=== PATIENT | male | born 1990 | race Native Hawaiian/Other Pacific Islander ===

== ENCOUNTER 2017-08-06 14:38 | Inpatient (IN) | payer SELFPAY ==
[~2017-08-06] VITALS: Ht 182.9 cm; Wt 128.2 kg
[2017-08-06 14:41] VITALS: BP 130/71; PULSE 109; RESP 16; TEMP 99.7; O2SAT 98
[2017-08-06 15:10] VITALS: BP 128/72; PULSE 110; RESP 20; TEMP 99.1; O2SAT 98
--- NOTE | 2017-08-06 15:25 | PD ---
HPI Chief Complaint: Skin Problem Time Seen by Provider: 15:12 Travel History International Travel<30 days: No Contact w/Intl Traveler<30days: No Traveled to known affect area: No History of Present Illness HPI This patient complains of an infection in the right wrist. He injects IV Dilaudid frequently. He says he might of injected in the site but some phlegm but is not sure. No drainage from it. Symptoms severity is moderate. No alleviating factors. Duration 2 days. PFSH Social History Alcohol Use: No Tobacco Use: No Substance Use: No Allergies-Medications (Allergen,Severity, Reaction): Coded Allergies: No Known Allergies (Unverified , 08/06/17) Reported Meds & Prescriptions Reported Meds & Active Scripts Active No Active Prescriptions or Reported Medications Review of Systems General / Constitutional: Positive: Fever Eyes: No: Visual changes HENT: No: Headaches Cardiovascular: Positive: Tachycardia, No: Chest Pain or Discomfort Respiratory: No: Shortness of Breath Gastrointestinal: No: Abdominal Pain Genitourinary: No: Dysuria Musculoskeletal: Positive: Pain Skin: No Rash Neurologic: No: Weakness Psychiatric: Positive: Substance Abuse, No: Depression Endocrine: No: Polydipsia Hematologic/Lymphatic: No: Easy Bruising Physical Exam Narrative GENERAL: Well-nourished, well-developed patient in no apparent distress. SKIN: Focused skin assessment reveals no rash and nodules. Skin is Warm and dry. HEAD: Atraumatic. Normocephalic. EYES: Pupils equal and round. No scleral icterus. No injection or drainage. ENT: No nasal bleeding or discharge. Mucous membranes pink and moist. NECK: Trachea midline. No JVD. CARDIOVASCULAR: Regular rate and rhythm. No murmur appreciated. RESPIRATORY: No accessory muscle use. Clear to auscultation. Breath sounds equal bilaterally. GASTROINTESTINAL: Abdomen soft, non-tender, nondistended. Hepatic and splenic margins not palpable. MUSCULOSKELETAL: Has induration and erythema on the volar aspect of the right wrist. There is no fluctuance or active drainage. No clubbing. No cyanosis. No edema. NEUROLOGICAL: Awake and alert. No obvious cranial nerve deficits. Motor grossly within normal limits. Normal speech. PSYCHIATRIC: Appropriate mood and affect; insight and judgment poor . Data Data Last Documented VS Vital Signs Date Time Temp Pulse Resp B/P (MAP) Pulse Ox O2 Delivery O2 Flow Rate FiO2 08/06/17 15:10 99.1 110 20 128/72 (90) 98 Room Air Orders Orders Iv Access Insert/Monitor (08/06/17 15:17) Complete Blood Count With Diff (08/06/17 15:17) Comprehensive Metabolic Panel (08/06/17 15:17) Blood Culture (08/06/17 15:17) Vancomycin Inj (Vancomycin Inj) (08/06/17 15:30) Wrist, Limited (Ap&Lat) (08/06/17 ) Wound Culture And Gram Stain (08/06/17 16:05) Admit Order (Ed Use Only) (08/06/17 16:38) Labs Laboratory Tests Test 08/06/17 15:15 08/06/17 15:30 Blood Urea Nitrogen 7 MG/DL Creatinine 1.12 MG/DL Random Glucose 93 MG/DL Total Protein 8.4 GM/DL Albumin 3.6 GM/DL Calcium Level 9.1 MG/DL Alkaline Phosphatase 100 U/L Aspartate Amino Transf (AST/SGOT) 8 U/L Alanine Aminotransferase (ALT/SGPT) 20 U/L Total Bilirubin 0.7 MG/DL Sodium Level 135 MEQ/L Potassium Level 3.6 MEQ/L Chloride Level 101 MEQ/L Carbon Dioxide Level 23.6 MEQ/L Anion Gap 10 MEQ/L Estimat Glomerular Filtration Rate 79 ML/MIN White Blood Count 17.0 TH/MM3 Red Blood Count 4.89 MIL/MM3 Hemoglobin 14.2 GM/DL Hematocrit 41.5 % Mean Corpuscular Volume 84.8 FL Mean Corpuscular Hemoglobin 29.1 PG Mean Corpuscular Hemoglobin Concent 34.3 % Red Cell Distribution Width 13.5 % Platelet Count 214 TH/MM3 Mean Platelet Volume 9.4 FL Neutrophils (%) (Auto) 84.3 % Lymphocytes (%) (Auto) 8.6 % Monocytes (%) (Auto) 6.7 % Eosinophils (%) (Auto) 0.3 % Basophils (%) (Auto) 0.1 % Neutrophils # (Auto) 14.3 TH/MM3 Lymphocytes # (Auto) 1.5 TH/MM3 Monocytes # (Auto) 1.1 TH/MM3 Eosinophils # (Auto) 0.1 TH/MM3 Basophils # (Auto) 0.0 TH/MM3 CBC Comment DIFF FINAL Differential Comment MDM Medical Decision Making Medical Screen Exam Complete: Yes Emergency Medical Condition: Yes Medical Record Reviewed: Yes Differential Diagnosis Abscess, cellulitis, IV drug abuse Narrative Course I have reviewed the patient's electronic medical record. IV placed CBC shows leukocytosis of 17,000 Metabolic profile is normal LFTs are normal 2 blood culture sets obtained 1 g IV vancomycin given UMAIR Gordon performed ID on abcess and culture sent. Patient will require admission for IV antibiotics and evaluation for possible endocarditis given his fever and tachycardia and leukocytosis. Call placed to the medical residents for admission Sepsis Criteria SIRS Criteria (2 or more): Heart rate over 90, WBC > 59375, < 4000 or > 10% bands Sepsis Criteria (SIRS+source): Infect source susp/known Criteria Outcome: Meets sepsis criteria Diagnosis Primary Impression: Cellulitis of right arm Additional Impression: IV drug abuse Admitting Information Admitting Physician Requests: Admit Scripts No Active Prescriptions or Reported Alexey Larson MD Aug 06, 2017 15:25
[2017-08-06] MEDS ORDERED: VANCOMYCIN INJ 1,000 MG in SODIUM CHLOR 0.9% 250 ML INJ 250 ML IV ONE (15:30)
--- NOTE | 2017-08-06 15:47 | PD ---
Physical Exam Time Seen by Provider: 15:30 Data Data Last Documented VS Vital Signs Date Time Temp Pulse Resp B/P (MAP) Pulse Ox O2 Delivery O2 Flow Rate FiO2 08/06/17 14:41 99.7 109 16 130/71 (90) 98 Orders Orders Iv Access Insert/Monitor (08/06/17 15:17) Complete Blood Count With Diff (08/06/17 15:17) Comprehensive Metabolic Panel (08/06/17 15:17) Blood Culture (08/06/17 15:17) Vancomycin Inj (Vancomycin Inj) (08/06/17 15:30) Wrist, Limited (Ap&Lat) (08/06/17 ) MDM Medical Record Reviewed: Yes Supervised Visit with EDGARD: No Narrative Course This patient has a small abscess to the right wrist, he verbally consented to incision and drainage. Wound culture was performed. Procedures Procedure Narrative INCISION AND DRAINAGE OF ABSCESS: The area was prepped and was sterilely draped. A subcutaneous wheal of 1% Xylocaine with epinephrine with a total number 5 mL was used to anesthetize the area. The area was properly anesthetized. A [id number] was used to make a 1 -cm incision across the area of the abscess. Cultures were obtained. The abscess was drained an irrigated with normal saline. Scripts No Active Prescriptions or Reported Johnathans Evan Simpson Aug 06, 2017 15:47
[2017-08-06 16:11] LABS: AUTOMATED NEUTROPHIL # 14.3 TH/MM3 (1.8-7.7); BASOPHIL % 0.1 % (0.0-2.0); EOSINOPHIL # 0.1 TH/MM3 (0-0.4); EOSINOPHIL % 0.3 % (0.0-4.0); HEMATOCRIT 41.5 % (39.0-51.0); HEMO FLAGS DIFF FINAL; LYMPH % 8.6 % (9.0-44.0); LYMPHOCYTE # 1.5 TH/MM3 (1.0-4.8); MEAN CELL VOLUME 84.8 FL (80.0-100.0); MEAN CORPUSCULAR HEMOGLOBIN 29.1 PG (27.0-34.0); MEAN CORPUSCULAR HGB CONC 34.3 % (32.0-36.0); MONO % 6.7 % (0.0-8.0); NEUT % 84.3 % (16.0-70.0); PLATELET COUNT 214 TH/MM3 (150-450); RED BLOOD COUNT 4.89 MIL/MM3 (4.50-5.90); RED CELL DISTRIBUTION WIDTH 13.5 % (11.6-17.2)
--- NOTE | 2017-08-06 16:11 | RADRPT ---
EXAM DATE/TIME: 08/06/2017 16:01 [facility] COMPARISON: No previous studies available for comparison. INDICATIONS : Evaluate for foreign body. Possible needle fragment. MEDICAL HISTORY : None. SURGICAL HISTORY : None. ENCOUNTER: Initial ACUITY: 4 - 6 days PAIN SCORE: 7/10 LOCATION: Right upper extremity FINDINGS: There is swelling over the volar aspect of the wrist. There is no evidence of acute fracture. Bony mi neralization is normal. CONCLUSION: 1. There is no evidence of acute fracture. Mango Polanco MD on August 06, 2017 at 16:09 Board Certified Radiologist. This report was verified electronically.
[2017-08-06 16:35] LABS: ALT (GPT) 20 U/L (12-78); ANION GAP 10 MEQ/L (5-15); AST (GOT) 8 U/L (15-37); BICARBONATE 23.6 MEQ/L (21.0-32.0); BLOOD UREA NITROGEN 7 MG/DL (7-18); CHLORIDE 101 MEQ/L (98-107); GLOMERULAR FILTRATION RATE 79 ML/MIN (>89); POTASSIUM 3.6 MEQ/L (3.5-5.1); SODIUM (NA) 135 MEQ/L (136-145)
[2017-08-06 16:37] LABS: ALKALINE PHOSPHATASE 100 U/L (45-117); TOTAL BILIRUBIN ADULT 0.7 MG/DL (0.2-1.0)
--- NOTE | 2017-08-06 16:59 | HHI.HP ---
[facility] Service Family Medicine Primary Care Physician No Primary Care Physician Admission Diagnosis R arm cellulitis/abscess, IVDA Diagnoses: International Travel<30 Days: No Contact w/Intl Traveler<30days: No Known Affected Area: No History of Present Illness Patient is a 26-year-old IVDU who presents with right wrist abscess and cellulitis status post incision and drainage in emergency department. Patient reports that the pain and swelling started on Saturday. He can't remember if he missed when injecting or had an insect bite. For the last two days, he has been in unbearable pain. When he started getting a fever, he decided to come in. He reports decreased range of motion of his fingers secondary to pain. He also reports pain to palpation and movement of his wrist. He also reports some paresthesias in all of his fingers of his right hand. (Jason Hays MD R2) Review of Systems Constitutional: COMPLAINS OF: Fever, Chills, DENIES: Change in appetite, Night Sweats Endocrine: DENIES: Polydipsia, Polyuria Eyes: DENIES: Blurred vision, Diplopia, Eye pain, Vision loss, Double Vision Ears, nose, mouth, throat: DENIES: Throat pain, Ear Pain, Running Nose, Sinus Pain, Toothache Respiratory: DENIES: Cough, Sputum production, Shortness of breath Cardiovascular: DENIES: Chest pain, Syncope, Dyspnea on Exertion, Lower Extremity Edema Gastrointestinal: DENIES: Abdominal pain, Black stools, Bloody stools, Diarrhea , Nausea, Vomiting Genitourinary: DENIES: Dysuria, Penile Discharge Musculoskeletal: COMPLAINS OF: Joint pain, Muscle aches, Joint Swelling Integumentary: COMPLAINS OF: Abnormal pigmentation (red since ), DENIES: Rash Neurologic: COMPLAINS OF: Headache (for last two days), Paresthesias (fingers of right hand) (Jason Hays MD R2) Past Family Social History Past Medical History Patient reports that he has been in rehab for IVDU multiple times. He reports that he takes Dilaudid 8mg 3-4 times per day for a total of 32 mg per day. Has been taking this much for the last 6 years. Prior to that, he used to do 10-15 pills per day. Past Surgical History denies Reported Medications He reports that he takes Dilaudid 8mg 3-4 times per day for a total of 32 mg per day. Has been taking this much for the last 6 years. Prior to that, he used to do 10-15 pills per day. It has been a few months since taking Xanax 1 mg bid. Reported Meds & Active Scripts Active No Active Prescriptions or Reported Medications (Jason Hays MD R2) Allergies: Coded Allergies: No Known Allergies (Unverified , 08/06/17) Active Ordered Medications Current Medications Medications (Trade) Dose Ordered Sig/Jeni Route Start Time Stop Time Status Last Admin (NS Flush) 2 ml BID IV FLUSH 08/06/17 21:00 (NS Flush) 2 ml UNSCH PRN IV FLUSH 08/06/17 17:00 Sodium Chloride 1,000 ml @ 160 mls/hr Q6H15M IV 08/06/17 16:50 08/06/17 18:23 Pharmacy Profile Note 0 ml @ 0 mls/hr UNSCH OTHER 08/06/17 17:00 (Lovenox Inj) 40 mg Q24H SQ 08/06/17 20:00 (Ofirmev 1000 Mg/ 100 ml Inj) 1,000 mg Q6H IV 08/06/17 18:00 (Motrin) 400 mg Q6H PRN PO 08/06/17 17:30 (Toradol Inj) 15 mg Q6H PRN IVP 08/06/17 17:30 08/11/17 17:29 (Toradol Inj) 30 mg Q6H PRN IVP 08/06/17 17:30 08/11/17 17:29 (Dilaudid Pf Inj) 2 mg Q3H PRN IV 08/06/17 17:30 (Narcan Inj) 0.4 mg UNSCH PRN IV 08/06/17 17:30 Vancomycin HCl 2000 mg/Sodium Chloride 520 ml @ 250 mls/hr Q12H IV 08/06/17 22:00 Miscellaneous Information SPECIFIC LAB TO BE ... ONCE ONCE .XX 08/08/17 21:45 08/08/17 21:46 Family History His grandfather had multiple bypass surgeries. His dad recently had a heart attack. Social History He is not working anymore. He has been staying with a friend. Tobacco: 1ppd for 15 years. Alcohol : denies He reports that he takes Dilaudid 8mg 3-4 times per day for a total of 32 mg per day. Has been taking this much for the last 6 years. Prior to that, he used to do 10-15 pills per day. He reports smoking marijuana for glaucoma in both eyes, which helps with headaches. (Jason Hays MD R2) Physical Exam Vital Signs Vital Signs Date Time Temp Pulse Resp B/P (MAP) Pulse Ox O2 Delivery O2 Flow Rate FiO2 08/06/17 15:10 99.1 110 20 128/72 (90) 98 Room Air 08/06/17 14:41 99.7 109 16 130/71 (90) 98 Physical Exam GENERAL: This is a well-nourished, well-developed patient, in no apparent distress. SKIN: See musculoskeletal exam for description of right arm abscess and cellulitis. No rashes or ecchymoses. Otherwise, warm and dry. HEAD: Atraumatic. Normocephalic. EYES: Pupils equal round and reactive. Extraocular motions intact. No scleral icterus. No injection or drainage. ENT: Nose without bleeding, purulent drainage or septal hematoma. Throat without erythema, tonsillar hypertrophy or exudate. Uvula midline. Airway patent. NECK: Trachea midline. No JVD or lymphadenopathy. Supple, nontender, no meningeal signs. CARDIOVASCULAR: Regular rate and rhythm without murmurs, gallops, or rubs. RESPIRATORY: Clear to auscultation. Breath sounds equal bilaterally. No wheezes , rales, or rhonchi. GASTROINTESTINAL: Abdomen soft, non-tender, nondistended. No hepato-splenomegaly , or palpable masses. No guarding. MUSCULOSKELETAL: Extremities without clubbing, cyanosis, or edema. No calf tenderness. He has the beginnings of a pilonidal cyst with erythema and fluctuance over coccyx. Right forearm and wrist: Patient with a 3 cm x 4 cm abscess status post incision and drainage on the volar aspect of his right wrist, a few centimeters from the palm of the hand. There is a surrounding area of erythema about 7 cm x 16 cm extending proximally up the volar aspect of the right forearm. Erythematous area is extremely tender to palpation. Patient reports tenderness to palpation of right wrist. Wrist and finger range of motion limited by pain. He can however move his fingers and feel me touching his fingers. 2 second cap refill present in all fingers. NEUROLOGICAL: Awake and alert. Cranial nerves II through XII grossly intact. Motor and sensory grossly within normal limits. Five out of 5 muscle strength in all muscle groups. Normal speech. Laboratory Laboratory Tests Test 08/06/17 15:15 08/06/17 15:30 Blood Urea Nitrogen 7 Creatinine 1.12 Random Glucose 93 Total Protein 8.4 Albumin 3.6 Calcium Level 9.1 Alkaline Phosphatase 100 Aspartate Amino Transf (AST/SGOT) 8 Alanine Aminotransferase (ALT/SGPT) 20 Total Bilirubin 0.7 Sodium Level 135 Potassium Level 3.6 Chloride Level 101 Carbon Dioxide Level 23.6 Anion Gap 10 Estimat Glomerular Filtration Rate 79 White Blood Count 17.0 Red Blood Count 4.89 Hemoglobin 14.2 Hematocrit 41.5 Mean Corpuscular Volume 84.8 Mean Corpuscular Hemoglobin 29.1 Mean Corpuscular Hemoglobin Concent 34.3 Red Cell Distribution Width 13.5 Platelet Count 214 Mean Platelet Volume 9.4 Neutrophils (%) (Auto) 84.3 Lymphocytes (%) (Auto) 8.6 Monocytes (%) (Auto) 6.7 Eosinophils (%) (Auto) 0.3 Basophils (%) (Auto) 0.1 Neutrophils # (Auto) 14.3 Lymphocytes # (Auto) 1.5 Monocytes # (Auto) 1.1 Eosinophils # (Auto) 0.1 Basophils # (Auto) 0.0 CBC Comment DIFF FINAL Differential Comment Date/Time Source Procedure Growth Status 08/06/17 15:15 Blood Peripheral Aerobic Blood Culture Pending Received 08/06/17 15:15 Blood Peripheral Anaerobic Blood Culture Pending Received 08/06/17 16:00 Wound Wrist Gram Stain Pending Received 08/06/17 16:00 Wound Wrist Wound Culture Pending Received (Jason Hays MD R2) Result Diagram: 08/06/17 1530 08/06/17 1515 Imaging Last Impressions Wrist X-Ray 08/06/17 0000 Signed Impressions: Service Date/Time: Sunday, August 06, 2017 16:01 - CONCLUSION: 1. There is no evidence of acute fracture. Mango Polanco MD Course In the emergency department, patient had vancomycin IV, blood culture, CMP, CBC , wrist x-ray, wound culture and Gram stain, admission order. (Jason Hays MD R2) Septic Shock Reassessment Heart: Regular rate and rhythm Lungs: Clear Skin: Warm, Dry, [place] Capillary Refill: Brisk, <2 seconds (Jason Hays MD R2) Caprini VTE Risk Assessment Caprini VTE Risk Assessment: No/Low Risk (score <= 1) Caprini Risk Assessment Model Point Value = 1 Point Value = 2 Point Value = 3 Point Value = 5 Age 41-60 Minor surgery BMI > 25 kg/m2 Swollen legs Varicose veins or History of unexplained or recurrent spontaneous Oral contraceptives or hormone replacement Sepsis (< 1 month) Serious lung disease, including pneumonia (< 1 month) Abnormal pulmonary function Acute myocardial infarction Congestive heart failure (< 1 month) History of inflammatory bowel disease Medical patient at bed rest Age 61-74 Arthroscopic surgery Major open surgery (> 45 min) Laparoscopic surgery (> 45 min) Malignancy Confined to bed (> 72 hours) Immobilizing plaster cast Central venous access Age >= 75 History of VTE Family history of VTE Factor V Leiden Prothrombin [id number] Lupus anticoagulant Anticardiolipin antibodies Elevated serum homocysteine Heparin-induced thrombocytopenia Other congenital or acquired thrombophilia Stroke (< 1 month) Elective arthroplasty Hip, pelvis, or leg fracture Acute spinal cord injury (< 1 month) Prophylaxis Regimen Total Risk Factor Score Risk Level Prophylaxis Regimen 0-1 Low Early ambulation 2 Moderate Order ONE of the following: *Sequential Compression Device (SCD) *Heparin 5000 units SQ BID 3-4 Higher Order ONE of the following medications: *Heparin 5000 units SQ TID *Enoxaparin/Lovenox 40 mg SQ daily (WT < 150 kg, CrCl > 30 mL/min) *Enoxaparin/Lovenox 30 mg SQ daily (WT < 150 kg, CrCl > 10-29 mL/min) *Enoxaparin/Lovenox 30 mg SQ BID (WT < 150 kg, CrCl > 30 mL/min) AND/OR *Sequential Compression Device (SCD) 5 or more Highest Order ONE of the following medications: *Heparin 5000 units SQ TID (Preferred with Epidurals) *Enoxaparin/Lovenox 40 mg SQ daily (WT < 150 kg, CrCl > 30 mL/min) *Enoxaparin/Lovenox 30 mg SQ daily (WT < 150 kg, CrCl > 10-29 mL/min) *Enoxaparin/Lovenox 30 mg SQ BID (WT < 150 kg, CrCl > 30 mL/min) AND *Sequential Compression Device (SCD) (Jason Hays MD R2) Assessment and Plan Assessment and Plan Patient is a 26-year-old IVDU who presents with right wrist abscess and cellulitis status post incision and drainage in emergency department. Plan to admit for IV antibiotics and echocardiogram. Given that the patient reports tenderness to palpation of right wrist, Wrist and finger range of motion limited by pain, consulted hand surgery, who requested MRI of right wrist. Code Status Full code Discussed Condition With d/w Dr. Duff (Jason Hays MD R2) Attending Attestation The patient has been seen and examined. The chart and all resident notes have been reviewed. I agree that inpatient care is appropriate and that a two midnight stay is expected for the reasons documented in the resident history and physical. I have discussed this with the resident and certify the resident s order for inpatient admission. (Yuliet Duff MD) Problem List: (1) Sepsis ICD Codes: A41.9 - Sepsis, unspecified organism Plan: Patient meets SIRS with leukocytosis and tachycardia with identifiable source with abscess and cellulitis. -See A/P below -IVF bolus (2) Abscess ICD Codes: L02.91 - Cutaneous abscess, unspecified Plan: Patient presents with abscess in the context of IVDU s/p I&D in ED. abscess is located over the tendons of the hand. Patient reports tenderness to palpation of wrist, decreased range of motion of wrist, decreased range of motion of fingers secondary to pain. -Consult hand surgery -MRI of right wrist -Wound culture and Gram stain (3) Cellulitis of right arm ICD Codes: L03.113 - Cellulitis of right upper limb Status: Acute Plan: Patient with area of cellulitis surrounding abscess. -Vancomycin IV every 12 hours -Maintenance IV fluids with normal saline -Blood culture -Monitor vital signs -Acetaminophen 1 g IV every 6 hours -Motrin when necessary for pain 1-2 -Toradol 15 mg IV when necessary for pain 3-5, 30 mg IV for pain 6-10 -Dilaudid when necessary for breakthrough pain - (4) IV drug abuse ICD Codes: F19.10 - Other psychoactive substance abuse, uncomplicated Status: Acute Plan: Patient with history of IV drug use. -Echocardiogram -HIV, hepatitis panel (5) Anxiety ICD Codes: F41.9 - Anxiety disorder, unspecified Plan: -Xanax 0.5 mg by mouth every 4 hours when necessary for anxiety (6) No contraindication to deep vein thrombosis (DVT) prophylaxis ICD Codes: Z78.9 - Other specified health status Plan: -Lovenox for DVT prophylaxis (7) Nutrition, metabolism, and development symptoms ICD Codes: R63.8 - Other symptoms and signs concerning food and fluid intake Plan: Fluids: Maintenance IV fluids with normal saline Electrolytes: Monitor and replete as necessary Nutrition: Regular basic diet (Jason Hays MD R2) Physician Certification 2 Midnight Certification Type: Admission for Inpatient Services Order for Inpatient Services The services are ordered in accordance with Medicare regulations or non- Medicare payer requirements, as applicable. In the case of services not specified as inpatient-only, they are appropriately provided as inpatient services in accordance with the 2-midnight benchmark. Estimated LOS (days): 2 2 days is the estimated time the patient will need to remain in the hospital, assuming treatment plan goals are met and no additional complications. Post-Hospital Plan: Not yet determined (Jason Hays MD R2) Jason Hays MD R2 Aug 06, 2017 16:59 Yuliet Duff MD Aug 07, 2017 21:55
[2017-08-06] MEDS ORDERED: Vancomycin Consult Pharmacy 1 EA OTHER SCH ×3 (17:00→21:15)
[2017-08-06] MEDS ORDERED: ACETAMINOPHEN 500 MG CPLT PO PRN (17:00)
[2017-08-06] MEDS ORDERED: SODIUM CHLORIDE 0.9% FLUSH 10 ML FLUSH IV FLUSH PRN (17:00)
[2017-08-06] MEDS ORDERED: VANCOMYCIN INJ 1,000 MG in SODIUM CHLOR 0.9% 250 ML INJ 250 ML IV SCH (17:00)
[2017-08-06] MEDS ORDERED: ACETAMINOPHEN/HYDROcodone 325 MG/7.5 MG TAB PO PRN (17:00)
[2017-08-06] MEDS ORDERED: KETOROLAC TROMETHAMINE 30 MG/ML (IVP) VIAL IVP PRN ×2 (17:00→17:30)
[2017-08-06] MEDS ORDERED: ACETAMINOPHEN/HYDROcodone 325 MG/5 MG TAB PO PRN (17:00)
[2017-08-06] MEDS ORDERED: HYDROmorphone HCL PF 2 MG/ML VIAL IV PUSH ONE (17:15)
[2017-08-06] MEDS ORDERED: KETOROLAC TROMETHAMINE 30 MG/ML (IVP) VIAL IVP ONE (17:15)
[2017-08-06] MEDS ORDERED: NALOXONE HCL 0.4 MG/ML AMP IV PRN (17:30)
[2017-08-06] MEDS ORDERED: IBUPROFEN 400 MG TAB PO PRN (17:30)
[2017-08-06] MEDS: ACETAMINOPHEN 1000 MG/100 ML VIAL IV SCH (18:00)
[2017-08-06] MEDS: SODIUM CHLOR 0.9% 1000 ML INJ 1,000 ML IV SCH ×2 (18:23→23:57)
--- NOTE | 2017-08-06 19:09 | RADRPT ---
EXAM DATE/TIME: 08/06/2017 18:44 [facility] COMPARISON: No previous studies available for comparison. INDICATIONS : Evaluate for foreign body, needle broke off in patient's arm, MRI clearance. MEDICAL HISTORY : Smoker. SURGICAL HISTORY : None. ENCOUNTER: Initial ACUITY: 1 month PAIN SCORE: 0/10 LOCATION: Right elbow. FINDINGS: Two view examination of the right elbow demonstrates no soft tissue swelling, joint effusion, fractur e or dislocation. Bony mineralization is normal. Small needle fragment in soft tissues in the latera l antecubital region. CONCLUSION: 1. Tiny needle fragment in soft tissues. Patient is cleared for MRI Dylan Tong MD on August 06, 2017 at 19:05 Board Certified Radiologist. This report was verified electronically.
--- NOTE | 2017-08-06 19:10 | RADRPT ---
EXAM DATE/TIME: 08/06/2017 18:46 [facility] COMPARISON: No previous studies available for comparison. INDICATIONS : Evaluate for foreign body, needle broke off in patient's arm, MRI clearence. MEDICAL HISTORY : Smoker. SURGICAL HISTORY : None. ENCOUNTER: Initial ACUITY: >1 year PAIN SCORE: 0/10 LOCATION: Left elbow. FINDINGS: Two view examination of the left elbow demonstrates 2 tiny needle fragments in the soft tissues of th e medial antecubital region. No acute bony abnormalities. CONCLUSION: 1. 2 tiny needle fragments in the antecubital soft tissues. Patient cleared for MRI. Dylan Tong MD on August 06, 2017 at 19:07 Board Certified Radiologist. This report was verified electronically.
[2017-08-06] MEDS: ENOXAPARIN SODIUM 40 MG/0.4 ML SYRINGE SQ SCH (20:00)
[2017-08-06 20:18] VITALS: BP 117/60; PULSE 92; RESP 18
[2017-08-06 20:44] VITALS: BP 117/58; PULSE 61; RESP 16; TEMP 98.6; O2SAT 97
[2017-08-06] MEDS: SODIUM CHLORIDE 0.9% FLUSH 10 ML FLUSH IV FLUSH SCH (21:00)
--- NOTE | 2017-08-06 21:53 | MB ---
cc: SUZAN CRAIG III, M.D. DATE OF CONSULTATION 08/06/17 HISTORY OF PRESENT ILLNESS The patient is a 26-year-old [id number] male who injects IV drugs by mixing crushed up Dilaudid with bottled water. He injected into his right volar wrist and developed an abscess. Incision and drainage was performed by the physician's assistant professor of communication this afternoon. I was consulted to rule out a septic wrist. The patient states he has had significant relief since the incision and drainage. PAST MEDICAL HISTORY He denies. PAST SURGICAL HISTORY Denies. MEDICATIONS Denied. ALLERGIES NO KNOWN DRUG ALLERGIES. REVIEW OF SYSTEMS Patient not complaining of any headaches, blurry or double vision. He is not complaining of any coughing, wheeze or shortness breath. He is not complaining of any chest pain or palpitations. He is not complaining of any nausea, vomiting or abdominal pain. He is not complaining of any burning, frequency or urgency with urination. He is not complaining of any night sweats, fevers or chills. He is not complaining of any lesions, rashes or eruptions on his skin other than the right wrist. He is not complaining of any anxiety, depression or suicidal ideations. LABORATORY DATA Laboratory studies were done and reveal white blood cell count 17,000, platelet count 214,000, BUN, creatinine 7 and 1.12. IMAGING STUDIES X-rays were performed and reviewed of his right elbow reveal a tiny needle fragment in soft tissue. A left elbow revealed two tiny needle fragments in the soft tissues. X-ray of the right wrist revealed swelling over the volar aspect of the wrist. No evidence of acute fracture. Bony mineralization is normal. PHYSICAL EXAMINATION GENERAL: Well-developed, well-nourished, no apparent distress, sitting comfortably in his bed. He is awake, alert, oriented x3. He is very pleasant. DIRECTED EXAMINATION: Examination of the right hand and upper extremity reveals an IV in the right antecubital fossa which will be promptly removed. There is a 1 cm longitudinal incision on the volar aspect of the wrist, right in the center, 3 cm proximal to the wrist flexion crease. I am able to express a small amount of pus from. There is no induration. There is edema and mild erythema, it is tender to touch. Examination of the wrist reveals he has full active range of motion of the wrist and all of his fingers. There is no erythema or fullness of the wrist. Manipulation of the wrist passively does not cause him any discomfort. Scaphoid shift test does not cause him any discomfort at all. Capillary refill is less than 2 seconds in all fingertips. There is no evidence of any subcutaneous emphysema anywhere in the right upper extremity. IMPRESSION Right distal forearm/wrist abscess status post incision and drainage. Gram stain revealed that it was not performed. He is on vancomycin and I am going to order Cipro as well. I have ordered dressing packing changes and we also ordered elevation of the limb full-time. I discussed this with the patient's nurse as well as the patient and with Dr. Hays and have everyone's agreement, the patient is very easy to work with. MD DANIEL Irizarry III/KADEN /9:09 PM /9:29 PM
[2017-08-06] MEDS: HYDROmorphone HCL PF 1 MG/ML VIAL IV PRN (22:10)
[2017-08-06] MEDS: VANCOMYCIN INJ 2,000 MG in SODIUM CHLORID 0.9% 500 ML INJ 500 ML IV SCH (23:57)
[2017-08-06] MEDS: ALPRAZolam 0.5 MG TAB PO PRN (23:57)
[2017-08-07 00:17] VITALS: BP 120/60; PULSE 64; RESP 16; TEMP 98.6; O2SAT 98
[2017-08-07] MEDS: KETOROLAC TROMETHAMINE 30 MG/ML (IVP) VIAL IVP PRN ×3 (01:43→17:50)
[2017-08-07] MEDS: CIPROFLOXACIN 400 MG PREMIX 200 ML IV SCH ×2 (04:03→13:25)
[2017-08-07 04:05] VITALS: BP 125/65; PULSE 65; RESP 18; TEMP 98.5; O2SAT 98
[2017-08-07] MEDS: HYDROmorphone HCL PF 1 MG/ML VIAL IV PRN ×4 (04:29→20:02)
[2017-08-07] MEDS: SODIUM CHLOR 0.9% 1000 ML INJ 1,000 ML IV SCH ×3 (04:47→17:48)
[2017-08-07] MEDS: ACETAMINOPHEN 1000 MG/100 ML VIAL IV SCH ×4 (05:57→20:00)
[2017-08-07 08:51] VITALS: BP 123/80; PULSE 57; RESP 16; TEMP 98; O2SAT 97
[2017-08-07] MEDS ORDERED: SODIUM CHLOR 0.9% 1000 ML INJ 1,000 ML IV ONE (09:00)
[2017-08-07] MEDS: SODIUM CHLORIDE 0.9% FLUSH 10 ML FLUSH IV FLUSH SCH ×2 (09:00→20:01)
[2017-08-07] MEDS: ALPRAZolam 0.5 MG TAB PO PRN ×2 (09:29→20:02)
[2017-08-07] MEDS: VANCOMYCIN INJ 2,000 MG in SODIUM CHLORID 0.9% 500 ML INJ 500 ML IV SCH ×2 (11:20→22:08)
[2017-08-07 11:24] VITALS: BP 119/77; PULSE 52; RESP 16; TEMP 98; O2SAT 99
[2017-08-07] MEDS: oxyCODONE HCL 10 MG CONTROLLED RELEASE TAB PO SCH ×2 (13:38→22:10)
[2017-08-07 16:33] VITALS: BP 121/68; PULSE 54; RESP 16; TEMP 97.7; O2SAT 98
[2017-08-07 17:25] LABS: BASOPHIL % 0.3 % (0.0-2.0); EOSINOPHIL # 0.2 TH/MM3 (0-0.4); EOSINOPHIL % 2.4 % (0.0-4.0); HEMO FLAGS DIFF FINAL; LYMPH % 20.2 % (9.0-44.0); LYMPHOCYTE # 1.8 TH/MM3 (1.0-4.8); MEAN CELL VOLUME 85.6 FL (80.0-100.0); MEAN CORPUSCULAR HEMOGLOBIN 28.7 PG (27.0-34.0); MEAN CORPUSCULAR HGB CONC 33.5 % (32.0-36.0); NEUT % 67.1 % (16.0-70.0); PLATELET COUNT 187 TH/MM3 (150-450); RED BLOOD COUNT 4.21 MIL/MM3 (4.50-5.90); RED CELL DISTRIBUTION WIDTH 13.6 % (11.6-17.2); WHITE BLOOD COUNT 8.9 TH/MM3 (4.0-11.0)
[2017-08-07 18:10] LABS: BICARBONATE 27.2 MEQ/L (21.0-32.0); POTASSIUM 3.9 MEQ/L (3.5-5.1)
--- NOTE | 2017-08-07 18:48 | HHI.FPPN ---
Subjective Subjective patient seen and examined with the resident team. case reviewed and discussed please refer to resident h&p for further details regarding hpi, ros, pmh, psh, fh and sochx in summary, patient is a 26yoM with a hx of ivdu presenting with swelling and pain in his R wrist upon arrival to the ED, patient met sepsis criteria [facility] Objective Objective Last Impressions Wrist X-Ray 08/06/17 0000 Signed Impressions: Service Date/Time: Sunday, August 06, 2017 16:01 - CONCLUSION: 1. There is no evidence of acute fracture. Mango Polanco MD Elbow X-Ray 08/06/17 0000 Signed Impressions: Service Date/Time: Sunday, August 06, 2017 18:46 - CONCLUSION: 1. 2 tiny needle fragments in the antecubital soft tissues. Patient cleared for MRI. Dylan Tong MD Laboratory Tests - Abnormals Test 08/07/17 04:38 08/07/17 16:21 Urine Cannabinoids Screen POS Red Blood Count 4.21 MIL/MM3 Hemoglobin 12.1 GM/DL Hematocrit 36.0 % Monocytes (%) (Auto) 10.0 % Erythrocyte Sedimentation Rate 48 mm/hr Calcium Level 8.0 MG/DL Chloride Level 109 MEQ/L C-Reactive Protein 7.90 MG/DL Vital Signs 08/06/17 08/06/17 08/07/17 08/07/17 20:18 20:44 00:17 02:45 Temp 98.6 98.6 Pulse 92 61 64 Resp 18 16 16 18 B/P (MAP) 117/60 (79) 117/58 (77) 120/60 (80) Pulse Ox 97 98 08/07/17 08/07/17 08/07/17 08/07/17 04:05 05:00 06:46 08:51 Temp 98.5 98.0 Pulse 65 57 Resp 18 16 18 16 B/P (MAP) 125/65 (85) 123/80 (94) Pulse Ox 98 97 08/07/17 08/07/17 11:24 16:33 Temp 98.0 97.7 Pulse 52 54 Resp 16 16 B/P (MAP) 119/77 (91) 121/68 (85) Pulse Ox 99 98 INTAKE & OUTPUT 08/08/17 07:00 Intake Total 3800 ml Balance 3800 ml Physical exam GENERAL: wdwn male, nad SKIN: Warm and dry. R wrist with edema and drainage expressible, pain with movement of fingers and wrist HEAD: Normocephalic. EYES: No scleral icterus. No injection or drainage. NECK: Supple, trachea midline. No JVD or lymphadenopathy. CARDIOVASCULAR: Regular rate and rhythm without murmurs, gallops, or rubs. RESPIRATORY: Breath sounds equal bilaterally. No accessory muscle use. GASTROINTESTINAL: Abdomen soft, non-tender, nondistended. MUSCULOSKELETAL: No cyanosis, or edema. BACK: Nontender without obvious deformity. No CVA tenderness. Assessment Assessment 26yoM admitted with: Sepsis secondary to wrist abscess IVDU Leukocytosis PSA PLAN PLAN Wound culture Blood culture IVF Empiric antibiotic therapy Hand surgery consult Pain control Patient seen and examined. Case reviewed and discussed Agree with plan of care as discussed with me and documented in the resident note. Yuliet Duff MD Aug 07, 2017 18:48
[2017-08-07 19:49] VITALS: BP 134/75; PULSE 48; RESP 19; TEMP 98.2; O2SAT 100
[2017-08-07] MEDS: ENOXAPARIN SODIUM 40 MG/0.4 ML SYRINGE SQ SCH (20:01)
[2017-08-08] MEDS: CIPROFLOXACIN 400 MG PREMIX 200 ML IV SCH (00:24)
[2017-08-08] MEDS: HYDROmorphone HCL PF 1 MG/ML VIAL IV PRN ×6 (00:25→19:59)
[2017-08-08] MEDS: SODIUM CHLOR 0.9% 1000 ML INJ 1,000 ML IV SCH ×3 (00:29→12:35)
[2017-08-08 01:16] VITALS: BP 126/78; PULSE 52; RESP 18; TEMP 98.6; O2SAT 100
[2017-08-08] MEDS: ACETAMINOPHEN 1000 MG/100 ML VIAL IV SCH ×4 (02:49→20:00)
[2017-08-08 03:49] VITALS: BP 116/69; PULSE 58; RESP 18; TEMP 97.8; O2SAT 99
[2017-08-08 04:50] VITALS: BP 114/69; PULSE 60; RESP 16; TEMP 97.5; O2SAT 100
[2017-08-08] MEDS: ALPRAZolam 0.5 MG TAB PO PRN ×3 (05:30→21:08)
[2017-08-08] MEDS: oxyCODONE HCL 10 MG CONTROLLED RELEASE TAB PO SCH ×3 (05:39→21:41)
[2017-08-08 08:03] VITALS: BP 125/75; PULSE 50; RESP 18; TEMP 97.7; O2SAT 98
[2017-08-08] MEDS: SODIUM CHLORIDE 0.9% FLUSH 10 ML FLUSH IV FLUSH SCH ×2 (08:18→20:00)
--- NOTE | 2017-08-08 09:02 | HHI.FPPN ---
Subjective Remarks Mr Martinez had no acute events overnight. His pain is controlled, is ambulating, taking PO, voiding and w/BMs. Still with pain in his right wrist. AFVSS. Hand surgeon told him to change dressings q8h. Nursing came to apply dressing this morning after Mr Martinez showered. Discussed goal of reducing opioid pain meds as wrist pain subsides to avoid dependence/addiction. Denies CP, SOB, N/V/D and DVT pain. (Cedric Jaeger MD R1) Objective Vitals Vital Signs Date Time Temp Pulse Resp B/P (MAP) Pulse Ox O2 Delivery O2 Flow Rate FiO2 08/08/17 04:50 97.5 60 16 114/69 (84) 100 08/08/17 03:49 97.8 58 18 116/69 (85) 99 08/08/17 01:16 98.6 52 18 126/78 (94) 100 08/07/17 19:49 98.2 48 19 134/75 (94) 100 08/07/17 16:33 97.7 54 16 121/68 (85) 98 08/07/17 11:24 98.0 52 16 119/77 (91) 99 I/O 08/07/17 08/07/17 08/07/17 08/08/17 08/08/17 08/08/17 07:00 15:00 23:00 07:00 15:00 23:00 Intake Total 720 ml 2800 ml 1000 ml Balance 720 ml 2800 ml 1000 ml Intake IV Total 720 ml 2800 ml 1000 ml (Cedric Jaeger MD R1) Result Diagram: 08/07/17 1621 08/07/17 1621 Imaging Last Impressions Wrist X-Ray 08/06/17 0000 Signed Impressions: Service Date/Time: Sunday, August 06, 2017 16:01 - CONCLUSION: 1. There is no evidence of acute fracture. Mango Polanco MD Elbow X-Ray 08/06/17 0000 Signed Impressions: Service Date/Time: Sunday, August 06, 2017 18:46 - CONCLUSION: 1. 2 tiny needle fragments in the antecubital soft tissues. Patient cleared for MRI. Dylan Tong MD Objective Remarks GENERAL: Well-nourished, well-developed patient in NAD just dressing after taking a shower. SKIN: Warm and dry. Interval swelling and erythema of right forearm reduced from presentation yesterday HEAD: Normocephalic. Atraumatic. EYES: No scleral icterus. No injection or drainage. EOMI. NECK: Supple, trachea midline. No lymphadenopathy. CARDIOVASCULAR: Regular rate and rhythm without murmurs, gallops, or rubs. RESPIRATORY: Breath sounds equal bilaterally. No accessory muscle use. No increased WOB. GASTROINTESTINAL: Abdomen soft, non-tender, nondistended. EXTREMITIES: No cyanosis, or edema. No pain on palpation of bilateral LEs. Right forearm: still tenderness to palpation and expression of fluid from open incision. Expressed serosanguious fluid with trace pus. Area around the 2 cm open surgical wound on volar aspect of right wrist still erythematous, but non-fluctuant or indurated. NEUROLOGICAL: Awake, alert, and oriented x 3. Non-focal. Medications and IVs Current Medications Medications (Trade) Dose Ordered Sig/Jeni Route Start Time Stop Time Status Last Admin (NS Flush) 2 ml BID IV FLUSH 08/06/17 21:00 08/08/17 08:18 (NS Flush) 2 ml UNSCH PRN IV FLUSH 08/06/17 17:00 08/08/17 06:53 Sodium Chloride 1,000 ml @ 160 mls/hr Q6H15M IV 08/06/17 16:50 08/08/17 00:29 (Lovenox Inj) 40 mg Q24H SQ 08/06/17 20:00 08/07/17 20:01 (Motrin) 400 mg Q6H PRN PO 08/06/17 17:30 (Toradol Inj) 15 mg Q6H PRN IVP 08/06/17 17:30 08/11/17 17:29 (Toradol Inj) 30 mg Q6H PRN IVP 08/06/17 17:30 08/11/17 17:29 08/07/17 17:50 (Dilaudid Pf Inj) 2 mg Q3H PRN IV 08/06/17 17:30 08/08/17 06:52 (Narcan Inj) 0.4 mg UNSCH PRN IV 08/06/17 17:30 Vancomycin HCl 2000 mg/Sodium Chloride 520 ml @ 250 mls/hr Q12H IV 08/06/17 22:00 08/07/17 22:08 Miscellaneous Information SPECIFIC LAB TO BE ... ONCE ONCE .XX 08/08/17 21:45 08/08/17 21:46 (Xanax) 0.5 mg Q4H PRN PO 08/06/17 19:30 08/08/17 05:30 Pharmacy Profile Note ml @ 0 mls/hr UNSCH OTHER 08/06/17 21:15 Ciprofloxacin/ Dextrose 200 ml @ 200 mls/hr Q12H IV 08/06/17 23:00 08/08/17 00:24 (OxyCONTIN CR) 10 mg Q8HR PO 08/07/17 14:00 08/08/17 05:39 (Ofirmev 1000 Mg/ 100 ml Inj) 1,000 mg Q6H IV 08/07/17 20:00 08/08/17 02:49 (Cedric Jaeger MD R1) A/P Assessment and Plan Patient is a 26-year-old IVDU who presents with right wrist abscess and cellulitis s/p I&D in emergency department and surgical reduction by hand surgery. Plan for placement of PICC and d/c with IV abx for __weeks (Cedric Jaeger MD R1) Attending Attestation Patient seen and examined. Case reviewed and discussed Agree with plan of care as discussed with me and documented in the resident note. (Yuliet Duff MD) Problem List: (1) Sepsis ICD Codes: A41.9 - Sepsis, unspecified organism Status: Resolved Plan: Patient met SIRS with leukocytosis and tachycardia with abscess and cellulitis cx positive for Staph aureus. -See A/P below -IVF bolus (2) Abscess ICD Codes: L02.91 - Cutaneous abscess, unspecified Status: Acute Plan: Patient presents with abscess in the context of IVDU s/p I&D in ED. abscess is located over the flexor tendons of the right hand on the volar aspect of the forearm proximal to the carpal tunnel. Patient reports tenderness to palpation of wrist, decreased range of motion of wrist, decreased range of motion of fingers secondary to pain. -Hand surgeon (Dr Dunne) consulted--appreciate recs -Wound cx positive for Staph aureus (MSSA); marion-susceptible except for PCN -ID consulted and following recs 08/08 - Continues to resolve with serosanguinous drainage with trace pus - Abx as below - Pain mgmt as below - Wound care: -Change dressing q8h w/water, packing, gauze, and bandage wrap -Pt understands and can comply (3) Cellulitis of right arm ICD Codes: L03.113 - Cellulitis of right upper limb Status: Acute Plan: Patient with area of cellulitis surrounding abscess. Continues to resolve 08/08 -Vancomycin IV 2g q12h (08/06 - 08/08) -Cipro 400 mg IV q12h (08/06 - 08/08) -ID consulted--following recs -Started Ancef 2g IV 08/08 -Plan to D/C pt on Keflex 500 mg QID on 08/09 if stable -Maintenance IV fluids with normal saline -Blood culture neg -Monitor vital signs Pain mgmt: -Acetaminophen 1 g IV q6h -Motrin when necessary for pain 1-2 -Toradol 15 mg IV PRN pain 3-5, 30 mg IV for pain 6-10 -Dilaudid 2mg q3h IV for breakthrough pain -Oxycodone 10 mg PRN PO (4) IV drug abuse ICD Codes: F19.10 - Other psychoactive substance abuse, uncomplicated Status: Chronic Plan: Patient with history of IV drug use. Imaging of right elbow shows needle fragment embedded in soft tissue. -Echocardiogram -HIV, hepatitis panel pending (5) Anxiety ICD Codes: F41.9 - Anxiety disorder, unspecified Status: Chronic Plan: -Continue Xanax 0.5 mg by mouth every 4 hours when necessary for anxiety (6) No contraindication to deep vein thrombosis (DVT) prophylaxis ICD Codes: Z78.9 - Other specified health status Status: Acute Plan: -Lovenox 40 mg/day for DVT prophylaxis (7) Nutrition, metabolism, and development symptoms ICD Codes: R63.8 - Other symptoms and signs concerning food and fluid intake Status: Acute Plan: Fluids: Maintenance IV fluids with normal saline Electrolytes: Monitor and replete as necessary Nutrition: Regular basic diet No PPI indicated (Cedric Jaeger MD R1) Problem Qualifiers (1) Sepsis: Qualified Codes: A41.01 - Sepsis due to methicillin susceptible Staphylococcus aureus Cedric Jaeger MD R1 Aug 08, 2017 09:02 Yuliet Duff MD Aug 09, 2017 08:26
[2017-08-08 12:03] VITALS: BP 115/60; PULSE 70; RESP 18; TEMP 98.1; O2SAT 97
--- NOTE | 2017-08-08 12:22 | HHI.PR ---
Subjective Remarks feels better today Objective Vital Signs Date Time Temp Pulse Resp B/P (MAP) Pulse Ox O2 Delivery O2 Flow Rate FiO2 08/08/17 08:03 97.7 50 18 125/75 (92) 98 08/08/17 04:50 97.5 60 16 114/69 (84) 100 08/08/17 03:49 97.8 58 18 116/69 (85) 99 08/08/17 01:16 98.6 52 18 126/78 (94) 100 08/07/17 19:49 98.2 48 19 134/75 (94) 100 08/07/17 16:33 97.7 54 16 121/68 (85) 98 I/O 08/07/17 08/07/17 08/07/17 08/08/17 08/08/17 08/08/17 07:00 15:00 23:00 07:00 15:00 23:00 Intake Total 720 ml 2800 ml 1000 ml 1000 ml Balance 720 ml 2800 ml 1000 ml 1000 ml Intake IV Total 720 ml 2800 ml 1000 ml 1000 ml Result Diagram: 08/07/17 1621 08/07/17 1621 Objective Remarks right wrist/forearm much better wound clean NVI throughout no purulence erythema resolving no induration no pus expressible AA x O x 3 Assessment and Plan Assessment and Plan continue IV abx until redness and swelling lessen, then d/c on po abx dsg/packing changes q8h Rich Gordillo III, MD Aug 08, 2017 12:22
[2017-08-08] MEDS: VANCOMYCIN INJ 2,000 MG in SODIUM CHLORID 0.9% 500 ML INJ 500 ML IV SCH (13:26)
--- NOTE | 2017-08-08 15:13 | ECHRPT ---
Indication: sepsis, endocarditis CONCLUSIONS Normal left ventricular size. Wall thickness is normal. The left ventricular ejection fraction is about 60%.. Basal posterior wall is scarred and hypokinetic - inferior wall not well imaged (no 2 chamber view). There is trace tricuspid valve regurgitation. The estimated pulmonary arterial pressure is 38mmHg. The pulmonary valve is not well visualized. Trivial pericardial effusion. BP: / HR: Rhythm: Sinus MEASUREMENTS (Male / Female) Normal Values Technical Quality:Good 2D ECHO LV Diastolic Diameter PLAX 4.5 cm 4.2 - 5.9 / 3.9 - 5.3 cm LV Systolic Diameter PLAX 3.6 cm IVS Diastolic Thickness 1.3 cm 0.6 - 1.0 / 0.6 - 0.9 cm LVPW Diastolic Thickness 0.7 cm 0.6 - 1.0 / 0.6 - 0.9 cm LV Relative Wall Thickness 0.4 LA Systolic Diameter LX 4.3 cm 3.0 - 4.0 / 2.7 - 3.8 cm M-MODE Aortic Root Diameter MM 3.5 cm AV Cusp Separation MM 2.5 cm DOPPLER Mitral E Point Velocity 111.0 cm/s Mitral A Point Velocity 86.9 cm/s Mitral E to A Ratio 1.3 TR Peak Velocity 309.0 cm/s TR Peak Gradient 38.2 mmHg FINDINGS LEFT VENTRICLE Normal left ventricular size. Wall thickness is normal. The left ventricular ejection fraction is about 60%.. Basal posterior wall is scarred and hypokinetic - inferior wall not well imaged (no 2 chamber view). RIGHT VENTRICLE Normal right ventricular size and systolic function. LEFT ATRIUM The left atrial size is normal. RIGHT ATRIUM The right atrial size is normal. ATRIAL SEPTUM Normal atrial septal thickness without atrial level shunting by limited color doppler interrogation. AORTA The aortic root and proximal ascending aorta are normal in size on limited imaging. MITRAL VALVE Structurally normal mitral valve. No mitral valve stenosis or regurgitation. AORTIC VALVE Trileaflet aortic valve. No aortic valve stenosis or regurgitation. TRICUSPID VALVE There is trace tricuspid valve regurgitation. The estimated pulmonary arterial pressure is 38mmHg. PULMONARY VALVE The pulmonary valve is not well visualized. VESSELS The inferior vena cava is normal in size. PERICARDIUM Trivial pericardial effusion. OTHER FINDINGS No vegetations seen. Lane Hallman MD (Electronically Signed) Final Date:08 August 2017 15:12
[2017-08-08 16:03] VITALS: BP 136/85; PULSE 59; RESP 18; TEMP 97.9; O2SAT 100
--- NOTE | 2017-08-08 16:25 | PD.CONS ---
History of Present Illness Service Infectious disease Consult Requested By Dr Duff Reason for Consult Evaluate patient with increased abscess, has staph aureus and the culture Primary Care Physician No Primary Care Physician Diagnoses: History of Present Illness Patient seen and examined. Records reviewed. Patient is a 26-year-old male, with known IV drug use, injects in her upper arms , recently injected in his right wrist about 5 days prior to admission. He started noticing pain and redness as well as swelling in the right wrist. It had progressively worsened, and he presented to the hospital for further evaluation and treatment. He was also not sure whether he had an insect bite in the same area. Patient has never had any problem with infection in his injection sites. There's been no fever or chills. He had I and D of the right wrist abscess in the emergency room. Hand surgery evaluated the patient, and did not think that there was any evidence of septic joint. He has not been febrile since admission. Culture now is growing MSSA from his wrist abscess. Blood cultures have been negative. Patient is currently on IV Vanco and Cipro. He is still complaining of significant pain. Infectious disease consultation has been requested to make recommendation regarding oral antibiotics. Review of Systems Constitutional: DENIES: Fever, Chills Eyes: DENIES: Eye pain Ears, nose, mouth, throat: DENIES: Nasal discharge, Throat pain, Sinus Pain Respiratory: DENIES: Cough, Shortness of breath Cardiovascular: DENIES: Chest pain, Palpitations Gastrointestinal: DENIES: Abdominal pain, Diarrhea, Nausea, Vomiting, Difficulty Swallowing Genitourinary: DENIES: Urinary frequency, Urgency Musculoskeletal: COMPLAINS OF: Joint pain, DENIES: Joint Swelling Integumentary: DENIES: Rash Neurologic: DENIES: Headache, Localized weakness, Paresthesias Psychiatric: DENIES: Confusion, Hallucinations Past Family Social History Allergies: Coded Allergies: No Known Allergies (Unverified , 08/06/17) Past Medical History IV drug use Past Surgical History None Active Ordered Medications Tylenol Xanax Cipro Lovenox Dilaudid Ibuprofen Portal OxyContin Vancomycin Family History Family history of heart disease Social History Currently lives with a friend Smokes one pack per day of cigarettes Denies alcohol abuse Has known history of IV drug use Physical Exam Vital Signs Vital Signs Date Time Temp Pulse Resp B/P (MAP) Pulse Ox O2 Delivery O2 Flow Rate FiO2 08/08/17 12:03 98.1 70 18 115/60 (78) 97 08/08/17 08:03 97.7 50 18 125/75 (92) 98 08/08/17 04:50 97.5 60 16 114/69 (84) 100 08/08/17 03:49 97.8 58 18 116/69 (85) 99 08/08/17 01:16 98.6 52 18 126/78 (94) 100 08/07/17 19:49 98.2 48 19 134/75 (94) 100 08/07/17 16:33 97.7 54 16 121/68 (85) 98 Physical Exam GENERAL: Patient is an obese, well-developed male, awake and alert, not in respiratory distress. SKIN: Warm and dry. No generalized rash, no ecchymoses and no evidence of embolic lesions. Has track green in both UE HEAD: Atraumatic. Normocephalic. No temporal wasting, or tenderness. EYES: [place] conjunctiva. No petechia or hemorrhage. Pupils equal, round and reactive to light. Extraocular movements full and intact. No scleral icterus. No injection or drainage. EARS, NOSE AND THROAT: Nose without bleeding or purulent nasal discharge. No sinus tenderness. Mucous membranes pink and moist. No oral lesions noted. NECK: Trachea midline. Supple and not tender, no meningeal signs CARDIOVASCULAR: Regular rate and rhythm. No murmurs, rubs or gallops heard RESPIRATORY: Clear to auscultation. Breath sounds equal bilaterally. No rales , wheezing or rhonchi ABDOMEN: Soft, non-tender, nondistended. Bowel sounds present and normoactive. No guarding. No rebound. No organomegaly. EXTREMITIES: RUE: Has a 1 cm incision on volar aspect of his R wrist, still with induration, but erythema seems improving, has good ROM at R wrist joint. No clubbing, cyanosis, or edema in BLE. No calf tenderness. Well perfused and warm. NEUROLOGICAL: Awake and alert. Cranial nerves grossly intact. Motor grossly within normal limits. PSYCHIATRIC: Normal affect, calm and cooperative. LINE: No evidence of infection Laboratory Laboratory Tests Test 08/07/17 16:21 White Blood Count 8.9 Red Blood Count 4.21 Hemoglobin 12.1 Hematocrit 36.0 Mean Corpuscular Volume 85.6 Mean Corpuscular Hemoglobin 28.7 Mean Corpuscular Hemoglobin Concent 33.5 Red Cell Distribution Width 13.6 Platelet Count 187 Mean Platelet Volume 8.9 Neutrophils (%) (Auto) 67.1 Lymphocytes (%) (Auto) 20.2 Monocytes (%) (Auto) 10.0 Eosinophils (%) (Auto) 2.4 Basophils (%) (Auto) 0.3 Neutrophils # (Auto) 6.0 Lymphocytes # (Auto) 1.8 Monocytes # (Auto) 0.9 Eosinophils # (Auto) 0.2 Basophils # (Auto) 0.0 CBC Comment DIFF FINAL Differential Comment Erythrocyte Sedimentation Rate 48 Blood Urea Nitrogen 7 Creatinine 1.00 Random Glucose 86 Calcium Level 8.0 Sodium Level 141 Potassium Level 3.9 Chloride Level 109 Carbon Dioxide Level 27.2 Anion Gap 5 Estimat Glomerular Filtration Rate 90 C-Reactive Protein 7.90 Date/Time Source Procedure Growth Status 08/07/17 16:21 Blood Peripheral Aerobic Blood Culture - Preliminary NO GROWTH IN 1 DAY Resulted 08/07/17 16:21 Blood Peripheral Anaerobic Blood Culture - Preliminary NO GROWTH IN 1 DAY Resulted 08/07/17 11:13 Wound Wrist Gram Stain - Final Resulted 08/07/17 11:13 Wound Culture - Preliminary Staphylococcus Aureus Resulted Result Diagram: 08/07/17 1621 08/07/17 1621 Imaging RADIOLOGY STUDIES/FILMS REVIEWED Wrist X-Ray 08/06/17 0000 Signed Impressions: Service Date/Time: Sunday, August 06, 2017 16:01 - CONCLUSION: 1. There is no evidence of acute fracture. Mango Polanco MD Elbow X-Ray 08/06/17 0000 Signed Impressions: Service Date/Time: Sunday, August 06, 2017 18:46 - CONCLUSION: 1. 2 tiny needle fragments in the antecubital soft tissues. Patient cleared for MRI. Dylan Tong MD Assessment and Plan Assessment and Plan IMPRESSION Cellulitis and abscess R forearm/wrist S/P I and D, C/S MSSA - no evidence of septic joint - BC negative Known IVDU RECOMMENDATION Change Abx to IV Ancef Stop Vanco and Cipro If stable, should be avle to go home tomorrow on Keflex 500 mg po QID x 14 days I spoke with [facility], we will need to give him his meds on D/C Thank you for this consultation Discussed Condition With Explained plan to the patient Spoke with [facility] about helping with providing Abx on discharge Miriam Garber MD Aug 08, 2017 16:24
[2017-08-08] MEDS: ENOXAPARIN SODIUM 40 MG/0.4 ML SYRINGE SQ SCH (19:59)
[2017-08-08] MEDS ORDERED: PHARMACY ORDERED LAB ONE (21:45)
[2017-08-09] VITALS: BP 113/71; PULSE 53; RESP 20; TEMP 97.4; O2SAT 100
[2017-08-09] MEDS: HYDROmorphone HCL PF 1 MG/ML VIAL IV PRN ×3 (00:02→08:39)
[2017-08-09] MEDS: ceFAZolin 2 GM PREMIX 50 ML IV SCH ×2 (00:03→08:38)
[2017-08-09] MEDS: ACETAMINOPHEN 1000 MG/100 ML VIAL IV SCH ×3 (01:02→14:02)
[2017-08-09] MEDS: SODIUM CHLOR 0.9% 1000 ML INJ 1,000 ML IV SCH (01:03)
[2017-08-09 04:00] VITALS: BP 120/65; PULSE 50; RESP 20; TEMP 97.2; O2SAT 100
[2017-08-09] MEDS: oxyCODONE HCL 10 MG CONTROLLED RELEASE TAB PO SCH ×2 (05:14→14:01)
[2017-08-09] MEDS: SODIUM CHLORIDE 0.9% FLUSH 10 ML FLUSH IV FLUSH SCH (08:39)
[2017-08-09] MEDS: ALPRAZolam 0.5 MG TAB PO PRN ×2 (09:28→14:12)
[2017-08-09 09:33] VITALS: BP 121/56; PULSE 58; RESP 22; TEMP 98.3; O2SAT 98
--- NOTE | 2017-08-09 12:22 | HHI.PR ---
Subjective Remarks feels better today Objective Vital Signs Date Time Temp Pulse Resp B/P (MAP) Pulse Ox O2 Delivery O2 Flow Rate FiO2 08/09/17 09:33 98.3 58 22 121/56 (77) 98 08/09/17 08:44 Room Air 08/09/17 04:00 97.2 50 20 120/65 (83) 100 08/09/17 00:00 97.4 53 20 113/71 (85) 100 08/08/17 20:00 Room Air 08/08/17 16:03 97.9 59 18 136/85 (102) 100 I/O 08/08/17 08/08/17 08/08/17 08/09/17 08/09/17 08/09/17 07:00 15:00 23:00 07:00 15:00 23:00 Intake Total 1100 ml 683 ml 50 ml Balance 1100 ml 683 ml 50 ml Intake Oral 420 ml IV Total 1100 ml 263 ml 50 ml # Voids 6 2 # Bowel Movements 2 1 Result Diagram: 08/07/17 1621 08/07/17 1621 Objective Remarks right wrist/forearm much better wound clean NVI throughout no purulence No erythema no induration no pus expressible as wound is almost completely superficial now AA x O x 3 Assessment and Plan Assessment and Plan Okay to DC home on oral antibiotics and local wound care, instructions given to the patient Rich Gordillo III, MD Aug 09, 2017 12:22
[2017-08-09 13:02] VITALS: BP 124/69; PULSE 60; RESP 20; TEMP 98.8; O2SAT 97
--- NOTE | 2017-08-09 13:19 | HHI.FPPN ---
Subjective Remarks Mr Martinez has no acute events overnight. AFVSS w/pulse in upper 50s/low60s which appears to be his baseline. His pain is controlled and is able to ambulate, take PO, void and stool appropriately. He states the pilonidal cyst on his lower back hurts more than his wrist now and is wondering if that can be treated while he is in the hospital. States his right hand and wrist are feeling better. He is a little anxious about the idea of going home today, even though he is medically stable. Denies CP, SOB, N/V/D and DVT pain. (Cedric Jaeger MD R1) Objective Vitals Vital Signs Date Time Temp Pulse Resp B/P (MAP) Pulse Ox O2 Delivery O2 Flow Rate FiO2 08/09/17 09:33 98.3 58 22 121/56 (77) 98 08/09/17 08:44 Room Air 08/09/17 04:00 97.2 50 20 120/65 (83) 100 08/09/17 00:00 97.4 53 20 113/71 (85) 100 08/08/17 20:00 Room Air 08/08/17 16:03 97.9 59 18 136/85 (102) 100 I/O 08/08/17 08/08/17 08/08/17 08/09/17 08/09/17 08/09/17 07:00 15:00 23:00 07:00 15:00 23:00 Intake Total 1100 ml 683 ml 50 ml Balance 1100 ml 683 ml 50 ml Intake Oral 420 ml IV Total 1100 ml 263 ml 50 ml # Voids 6 2 # Bowel Movements 2 1 (Cedric Jaeger MD R1) Result Diagram: 08/07/17 1621 08/07/17 1621 Imaging Last Impressions Wrist X-Ray 08/06/17 0000 Signed Impressions: Service Date/Time: Sunday, August 06, 2017 16:01 - CONCLUSION: 1. There is no evidence of acute fracture. Mango Polanco MD Elbow X-Ray 08/06/17 0000 Signed Impressions: Service Date/Time: Sunday, August 06, 2017 18:46 - CONCLUSION: 1. 2 tiny needle fragments in the antecubital soft tissues. Patient cleared for MRI. Dylan Tong MD Objective Remarks GENERAL: Well-nourished, well-developed patient in NAD lying in bed. SKIN: Warm and dry. Interval swelling and erythema of right forearm reduced from presentation yesterday HEAD: Normocephalic. Atraumatic. EYES: No scleral icterus. No injection or drainage. EOMI. NECK: Supple, trachea midline. No lymphadenopathy. CARDIOVASCULAR: Regular rate and rhythm without murmurs, gallops, or rubs. RESPIRATORY: Breath sounds equal bilaterally. No accessory muscle use. No increased WOB. GASTROINTESTINAL: Abdomen soft, non-tender, nondistended. EXTREMITIES: No cyanosis, or edema. No pain on palpation of bilateral LEs. Right forearm: still tenderness to palpation. Area around the 2 cm open surgical wound on volar aspect of right wrist still erythematous, but non- fluctuant or indurated. NEUROLOGICAL: Awake, alert, and oriented x 3. Non-focal. Medications and IVs Current Medications Medications (Trade) Dose Ordered Sig/Jeni Route Start Time Stop Time Status Last Admin (NS Flush) 2 ml BID IV FLUSH 08/06/17 21:00 08/09/17 08:39 (NS Flush) 2 ml UNSCH PRN IV FLUSH 08/06/17 17:00 08/08/17 06:53 Sodium Chloride 1,000 ml @ 160 mls/hr Q6H15M IV 08/06/17 16:50 08/09/17 01:03 (Lovenox Inj) 40 mg Q24H SQ 08/06/17 20:00 08/08/17 19:59 (Motrin) 400 mg Q6H PRN PO 08/06/17 17:30 (Narcan Inj) 0.4 mg UNSCH PRN IV 08/06/17 17:30 (Xanax) 0.5 mg Q4H PRN PO 08/06/17 19:30 08/09/17 09:28 (OxyCONTIN CR) 10 mg Q8HR PO 08/07/17 14:00 08/09/17 05:14 (Ofirmev 1000 Mg/ 100 ml Inj) 1,000 mg Q6H IV 08/07/17 20:00 08/09/17 08:38 Cefazolin Sodium/ Dextrose 50 ml @ 100 mls/hr Q8H IV 08/08/17 17:00 08/09/17 08:38 (Cedric Jaeger MD R1) Urinary Catheter: No (Cedric Jaeger MD R1) A/P Assessment and Plan Patient is a 26-year-old IVDU who presents with right wrist abscess and cellulitis s/p I&D in emergency department. -Per ID consult, switched to IV Ancef 08/08, and can go home today if medically stable with Keflex 500 mg PO QID (Cedric Jaeger MD R1) Attending Attestation Patient seen and examined. Case reviewed and discussed Agree with plan of care as discussed with me and documented in the resident note. (Yuliet Duff MD) Problem List: (1) Sepsis ICD Codes: A41.9 - Sepsis, unspecified organism Status: Resolved Plan: Patient met SIRS with leukocytosis and tachycardia with abscess and cellulitis cx positive for Staph aureus. -See A/P below (2) Abscess ICD Codes: L02.91 - Cutaneous abscess, unspecified Status: Acute Plan: Patient presents with abscess in the context of IVDU s/p I&D in ED. abscess is located over the flexor tendons of the right hand on the volar aspect of the forearm proximal to the carpal tunnel. Patient reports tenderness to palpation of wrist, decreased range of motion of wrist, decreased range of motion of fingers secondary to pain. -Hand surgeon (Dr Dunne) consulted--appreciate recs -Wound cx positive for Staph aureus (MSSA); marion-susceptible except for PCN -ID consulted and switched to Ancef IV abx 08/08 -Convert to Keflex 500mg PO QID for discharge today - Pain mgmt as below - Wound care: -Change dressing q8h w/water, packing, gauze, and bandage wrap -Pt understands and can comply (3) Cellulitis of right arm ICD Codes: L03.113 - Cellulitis of right upper limb Status: Acute Plan: Patient with area of cellulitis surrounding abscess. Resolved 08/09 -Vancomycin IV 2g q12h (08/06 - 08/08) -Cipro 400 mg IV q12h (08/06 - 08/08) -ID consulted--following recs -Started Ancef 2g IV 08/08 -Plan to D/C pt on Keflex 500 mg QID on 08/09 -D/C IVF -Blood culture neg -Monitor vital signs Pain mgmt: -Acetaminophen 1 g IV q6h -Motrin when necessary for pain 1-2 -D/C Toradol 15 mg IV PRN pain 3-5, 30 mg IV for pain 6-10 -D/C Dilaudid 2mg q3h IV for breakthrough pain -Discharge with home Oxycodone 10 mg PRN PO (4) IV drug abuse ICD Codes: F19.10 - Other psychoactive substance abuse, uncomplicated Status: Chronic Plan: Patient with history of IV drug use. Imaging of right elbow shows needle fragment embedded in soft tissue. -Echocardiogram -Hep A/B negative; however Hep C antibody positive -Hep C viral load and subtyping ordered -HIV still pending (5) Anxiety ICD Codes: F41.9 - Anxiety disorder, unspecified Status: Chronic Plan: -Continue Xanax 0.5 mg by mouth every 4 hours when necessary for anxiety (6) No contraindication to deep vein thrombosis (DVT) prophylaxis ICD Codes: Z78.9 - Other specified health status Status: Acute Plan: -Lovenox 40 mg/day for DVT prophylaxis (7) Nutrition, metabolism, and development symptoms ICD Codes: R63.8 - Other symptoms and signs concerning food and fluid intake Status: Acute Plan: Fluids: discontinue IVF Electrolytes: Monitor and replete as necessary Nutrition: Regular basic diet No PPI indicated (Cedric Jaeger MD R1) Problem Qualifiers (1) Sepsis: Qualified Codes: A41.01 - Sepsis due to methicillin susceptible Staphylococcus aureus Cedric Jaeger MD R1 Aug 09, 2017 13:19 Yuliet Duff MD Aug 11, 2017 15:47
[2017-08-09] MEDS ORDERED: HYDR-3534 PO (13:47)
[2017-08-09] MEDS ORDERED: CEPH-460 PO (13:47)
--- NOTE | 2017-08-09 13:48 | HHI.DCPOC ---
Discharge Care Plan Diagnosis: (1) Abscess (2) IV drug abuse Goals to Promote Your Health * To prevent worsening of your condition and complications * To maintain your health at the optimal level Directions to Meet Your Goals Take your medications as prescribed Follow your dietary instruction Follow activity as directed Keep your appointments as scheduled Take your immunizations and boosters as scheduled If your symptoms worsen call your PCP, if no PCP go to Urgent Care Center or Emergency Room Smoking is Dangerous to Your Health. Avoid second hand smoke Call the 24-hour hour crisis hotline for domestic abuse at Nicholas Correa MD, R3 Aug 09, 2017 13:48
[2017-08-09] MEDS ORDERED: OXYC-259 PO (15:19)
[2017-08-09] MEDS ORDERED: BUPR150CR PO (15:19)
--- NOTE | 2017-08-09 17:35 | HHI.DS ---
Discharge Summary Admission Date Aug 06, 2017 at 16:40 Discharge Date: Aug 09, 2017 Admitting Diagnosis R arm cellulitis/abscess, IVDA (1) Sepsis Diagnosis: Principal Plan: Patient met SIRS with leukocytosis and tachycardia with abscess and cellulitis cx positive for Staph aureus. -See A/P below ICD Codes: A41.9 - Sepsis, unspecified organism Status: Resolved (2) Abscess Diagnosis: Principal Plan: Patient presents with abscess in the context of IVDU s/p I&D in ED. abscess is located over the flexor tendons of the right hand on the volar aspect of the forearm proximal to the carpal tunnel. Patient reports tenderness to palpation of wrist, decreased range of motion of wrist, decreased range of motion of fingers secondary to pain. -Hand surgeon (Dr Dunne) consulted--appreciate recs -Wound cx positive for Staph aureus (MSSA); marion-susceptible except for PCN -ID consulted and switched to Ancef IV abx 08/08 -Convert to Keflex 500mg PO QID for discharge today - Pain mgmt as below - Wound care: -Change dressing q8h w/water, packing, gauze, and bandage wrap -Pt understands and can comply ICD Codes: L02.91 - Cutaneous abscess, unspecified Status: Acute (3) Cellulitis of right arm Diagnosis: Principal Plan: Patient with area of cellulitis surrounding abscess. Resolved 08/09 -Vancomycin IV 2g q12h (08/06 - 08/08) -Cipro 400 mg IV q12h (08/06 - 08/08) -ID consulted--following recs -Started Ancef 2g IV 08/08 -Plan to D/C pt on Keflex 500 mg QID on 08/09 -D/C IVF -Blood culture neg -Monitor vital signs Pain mgmt: -Acetaminophen 1 g IV q6h -Motrin when necessary for pain 1-2 -D/C Toradol 15 mg IV PRN pain 3-5, 30 mg IV for pain 6-10 -D/C Dilaudid 2mg q3h IV for breakthrough pain -Discharge with home Oxycodone 10 mg PRN PO ICD Codes: L03.113 - Cellulitis of right upper limb Status: Acute (4) IV drug abuse Plan: Patient with history of IV drug use. Imaging of right elbow shows needle fragment embedded in soft tissue. -Echocardiogram -Hep A/B negative; however Hep C antibody positive -Hep C viral load and subtyping ordered -HIV still pending ICD Codes: F19.10 - Other psychoactive substance abuse, uncomplicated Status: Chronic (5) Anxiety Plan: -Continue Xanax 0.5 mg by mouth every 4 hours when necessary for anxiety ICD Codes: F41.9 - Anxiety disorder, unspecified Status: Chronic (6) No contraindication to deep vein thrombosis (DVT) prophylaxis Plan: -Lovenox 40 mg/day for DVT prophylaxis ICD Codes: Z78.9 - Other specified health status Status: Acute (7) Nutrition, metabolism, and development symptoms Plan: Fluids: discontinue IVF Electrolytes: Monitor and replete as necessary Nutrition: Regular basic diet No PPI indicated ICD Codes: R63.8 - Other symptoms and signs concerning food and fluid intake Status: Acute Brief History Patient is a 26-year-old w/Hx of IVDU who presented with right wrist abscess and cellulitis status post incision and drainage in emergency department. Patient reports that the pain and swelling started on Saturday, 08/02. He can't remember if he missed when injecting or had an insect bite. For the last two days, he has been in unbearable pain. When he started getting a fever, he decided to come in. He reported decreased range of motion of his fingers secondary to pain. He also reports pain to palpation and movement of his wrist. He also reports some paresthesias in all of his fingers of his right hand. CBC/BMP: 08/07/17 1621 08/07/17 1621 Significant Findings Laboratory Tests Test 08/06/17 17:35 08/07/17 04:38 08/07/17 16:21 Urine Cannabinoids Screen POS (NEG) Red Blood Count 4.21 MIL/MM3 (4.50-5.90) Hemoglobin 12.1 GM/DL (13.0-17.0) Hematocrit 36.0 % (39.0-51.0) Monocytes (%) (Auto) 10.0 % (0.0-8.0) Erythrocyte Sedimentation Rate 48 mm/hr (0-15) Calcium Level 8.0 MG/DL (8.5-10.1) Chloride Level 109 MEQ/L (98-107) C-Reactive Protein 7.90 MG/DL (0.00-0.30) Hepatitis C Antibody REACTIVE (NEGATIVE) Imaging Last Impressions Wrist X-Ray 08/06/17 0000 Signed Impressions: Service Date/Time: Sunday, August 06, 2017 16:01 - CONCLUSION: 1. There is no evidence of acute fracture. Mango Polanco MD Elbow X-Ray 08/06/17 0000 Signed Impressions: Service Date/Time: Sunday, August 06, 2017 18:46 - CONCLUSION: 1. 2 tiny needle fragments in the antecubital soft tissues. Patient cleared for MRI. Dylan Tong MD PE at Discharge GENERAL: Well-nourished, well-developed patient in NAD lying in bed. SKIN: Warm and dry. Interval swelling and erythema of right forearm reduced from presentation yesterday HEAD: Normocephalic. Atraumatic. EYES: No scleral icterus. No injection or drainage. EOMI. NECK: Supple, trachea midline. No lymphadenopathy. CARDIOVASCULAR: Regular rate and rhythm without murmurs, gallops, or rubs. RESPIRATORY: Breath sounds equal bilaterally. No accessory muscle use. No increased WOB. GASTROINTESTINAL: Abdomen soft, non-tender, nondistended. EXTREMITIES: No cyanosis, or edema. No pain on palpation of bilateral LEs. Right forearm: still tenderness to palpation. Area around the 2 cm open surgical wound on volar aspect of right wrist still erythematous, but non- fluctuant or indurated. NEUROLOGICAL: Awake, alert, and oriented x 3. Non-focal. Hospital Course Patient is a 26-year-old w/Hx of IVDU who presented with right wrist abscess and cellulitis status post incision and drainage in emergency department. Patient reports that the pain and swelling started on Saturday, 08/02. He can't remember if he missed when injecting or had an insect bite. For the last two days, he has been in unbearable pain. When he started getting a fever, he decided to come in. He reported decreased range of motion of his fingers secondary to pain. He also reports pain to palpation and movement of his wrist. He also reports some paresthesias in all of his fingers of his right hand. On admit he meant criteria for sepsis with leukocytosis and tachycardia and wrist abscess found to be infected with staph aureus on wound culture. He was treated with IV Ancef and was converted to by mouth Keflex antibiotics on discharge. He was also given his home dose of Oxycodone 10 mg for pain control on discharge. On discharge his vital signs were stable and there was noticeable improvement in the initial swelling and erythema of his right forearm. He should denied chest pains or shortness of breath nausea, vomiting, diarrhea and DVT pain. Pt Condition on Discharge: Stable Discharge Disposition: Discharge Home Discharge Instructions DIET: Follow Instructions for: As Tolerated, No Restrictions Activities you can perform: Weight Bearing as Елена Follow up Referrals: PCP Follow-up - 1 Week New Medications: Bupropion HCl ER 12 HR (Wellbutrin SR 12 HR) 150 Mg Tab 150 MG PO Q12HR for Control Depression, #60 TAB 0 Refills Cephalexin (Keflex) 500 Mg Capsule 500 MG PO QID for Infection, #56 CAP 0 Refills Oxycodone ER (Oxycontin) 10 Mg Tab 10 MG PO Q8HR for Pain Management, #25 TAB 0 Refills Cedric Jaeger MD R1 Aug 09, 2017 17:35
== END 2017-08-09 16:03 | disposition home or self-care (01) | DRG 872 ==
LOC: NEPD 14:38 → NEDA 16:40 → NEPFCDU 20:17 → N04A 08-08 04:55
PROVIDERS: ADMIT Family Medicine; ATTEND Family Medicine
PROC: 0H9DXZZ Drainage of Right Lower Arm Skin, External Approach (ICD-10-PCS; principal; 2017-08-06)
DX: A41.9 Sepsis, unspecified organism (principal); F32.9 Major depressive disorder, single episode, unspecified; L02.413 Cutaneous abscess of right upper limb; L03.113 Cellulitis of right upper limb; F41.9 Anxiety disorder, unspecified; B95.61 Methicillin susceptible Staphylococcus aureus infection as the cause of diseases classified elsewhere; F17.210 Nicotine dependence, cigarettes, uncomplicated; F11.10 Opioid abuse, uncomplicated
CPT/HCPCS: 10060; 73070; 73100; 76937; 80048; 80053; 80074; 80307; 83605; 85025; 85652; 86140; 86403; 86703; 87040; 87070; 87147; 87186; 87205; 93306; 96365; J0131; J0690; J0744; J1170; J1650; J1885; J3370; J7030; J7040; J7050